=== PATIENT | female | born 1950 | race Caucasian/White ===

== ENCOUNTER 2016-09-18 06:33 | Inpatient (IN) | payer OTHER ==
--- NOTE | 2016-09-03 15:44 | NUR ---
PMH, allergies, meds reviewed and documented. Dose of Carvedilol confirmed with [facility]. Preop and DOS instructions given including handouts of shower instructions with CHG, medications to stop before surgery, ortho consent, Surgical Services pamphlet, Guidebook, and my contact information.
--- NOTE | 2016-09-16 14:00 | NUR ---
JOINT REPLACEMENT PREOP CLASS PATIENT ATTENDED JOINT REPLACEMENT PREOP CLASS. CASE MANAGEMENT CONTACT INFORMATION PROVIDED. EDUCATION WAS PROVIDED REGARDING WHAT TO EXPECT BEFORE, DURING AND AFTER SURGERY. INCLUDING: OVERVIEW OF ANATOMY AND PHYSIOLOGY HOSPITAL TREATMENT SCHEDULE THERAPY DEMONSTRATION CASE MANAGEMENT RESPONSIBILITIES DISCHARGE PLANNING EQUIPMENT NEEDS JOINT REPLACEMENT WORKBOOK ANTI-COAGULATION SURGERY STRONG NUTRITIONAL PROTOCOL DISCHARGE INSTRUCTIONS [facility] PATIENT PORTAL, WITH INSTRUCTIONS CJR AND PREOP SURVERY PREOP BATHING- CHG GIVEN ALL PATIENT'S QUESTIONS ANSWERED TO THEIR SATISFACTION. PATIENTS AND COACHES ENCOURAGED TO CALL WITH ANY ADDITIONAL QUESTIONS OR CONCERNS. CM FOLLOWING FOR TRANSITIONAL CARE PLANNING NEEDS DURING HOSPITALIZATION.
[2016-09-18] VITALS (26 sets, daily range): BP systolic 121–160; BP diastolic 56–104; PULSE 36–68; RESP 11–36; TEMP 97.3–97.6; O2SAT 86–100; Ht 171.4 cm; Wt 73.9 kg
[~2016-09-18] VITALS: Ht 171.4 cm; Wt 73.9 kg
[~2016-09-18 06:33] MED LIST: BIOT10004 PO; CARV6.252 PO; CEFAZOLIN 2 GM VIAL IV ONE; CHOL100055 PO; CRAN400C; FAMOTIDINE 20mg IVPB 50 ML IV ONE; FISH1CAP29 PO; GLUC1CAP25 PO; LIDOCAINE 1% (10mg/ml) 2ml SDV ID ONE; MELOXICAM 15 MG TABLET PO ONE; METOCLOPRAMIDE 10mg/2ml INJECTION IV ONE; MULT1CAP47 PO; NAPR220C11 PO; TURM500C8
--- OUTSIDE RECORDS SUMMARY | 2016-09-18 06:37 | XMS REPORT | Continuity of Care Document ---
Author Author [facility] Organization [facility] Address Unknown Phone Unavailable Allergies Medications Problems Procedures Results Encounters ACCT No. Visit Date/Time Discharge Status Pt. Type Provider Facility Loc./Unit Complaint [id number] 07/16/2015 09:45:00 [facility] Mary Soni
[2016-09-18] MEDS ORDERED: ONDANSETRON 4mg/2ml INJECTION IV ONE (07:00)
[2016-09-18] MEDS ORDERED: NOZIN NASAL SWAB NS ONE ×2 (07:00→11:15)
[2016-09-18] MEDS ORDERED: ACETAMINOPHEN 500 MG TABLET PO ONE (07:00)
[2016-09-18] MEDS ORDERED: LR 1,000 ML IV PRN (07:00)
[2016-09-18] MEDS ORDERED: CRAN500C3 PO (07:22)
[2016-09-18] MEDS ORDERED: TURM500C8 PO (07:23)
[2016-09-18] MEDS ORDERED: ACET-3088 PO (07:25)
[2016-09-18 07:26] LABS: ANION GAP 11 MEQ/L (5-15); BUN/CREATININE RATIO 24 RATIO (6-26); CALCIUM 10.1 MG/DL (8.4-10.2); CHLORIDE 105 MEQ/L (98-107); CO2 - CARBON DIOXIDE 29 MEQ/L (22-30); CREATININE 0.7 MG/DL (0.7-1.2); GLOMERULAR FILTRATION RATE 85; GLUCOSE 91 MG/DL (65-110); POTASSIUM 4.1 MEQ/L (3.6-5); SODIUM 145 MEQ/L (134-144)
[2016-09-18] MEDS ORDERED: ACET-2930 PO (07:26)
[2016-09-18] MEDS ORDERED: VANCOMYCIN 1 GRAM INJECTION ONE (08:31)
[2016-09-18] MEDS ORDERED: PROPOFOL 500mg 50 ML IV ONE (08:50)
[2016-09-18] MEDS ORDERED: MIDAZOLAM 2mg/2ml INJECTION ONE (09:23)
[2016-09-18] MEDS ORDERED: ROPIVACAINE 0.5% (5mg/ml) 30ml INJ ONE (09:45)
[2016-09-18] MEDS ORDERED: TRANEXAMIC ACID 1,000 MG in NORMAL SALINE 100 ML IV ONE ×2 (10:00→11:00)
--- NOTE | 2016-09-18 10:35 | NUR ---
CM CM ATTEMPTED VISIT. PT IS AT PROCEDURE. NO FAMILY PRESENT. CM CONTACT INFORMATION IS LEFT AT THE BEDSIDE.
[2016-09-18] MEDS ORDERED: EPINEPHRINE 0.25 MG, BUPIVACAINE 0.25% 75 MG, MORPHINE SULFATE 15 MG, KETOROLAC 60 MG i... INJ ONE ×5 (11:00)
--- NOTE | 2016-09-18 11:04 | PDOPERATE ---
Operative Report Date of Operation 09/18/16 Side: Left Preoperative Diagnosis: knee primary DJD Postoperative Diagnosis Same as preoperative diagnosis. Operation/Procedure: total knee arthroplasty (left) Surgeon Emily Conroy MD Field Irrigation Worker CHRIS Singh Complications None. Regional Block: Spinal Estimated Blood Loss See Anesthesia Record. Fluids Please See Anesthesia Record. Description of Operation Ms. Sood and her left knee were identified and marked in the the preoperative holding area. She was then brought back to the operating suite and proper anesthesia was administered. She was then positioned supine on the operating table. The left lower extremity was then prepped and draped in my normal sterile fashion. Timeout was performed with all operating room personnel. The leg was exsanguinated and tourniquet inflated 250 mmHg. A standard anterior incision followed by a medial parapatellar approach was utilized. She had severe disease in the lateral compartment and significant disease in the medial femoral condyle. A distal femoral cut was made in 5 of valgus using intramedullary guide. The femur was sized at a 4 and rotation set using the epicondylar axis. Distal femoral cuts were performed. A proximal tibial cut was made using extramedullary guide. Remaining osteophytes and meniscus were removed. Gaps were checked and they were well balanced and rectangular. Trial components were placed with a 9 mm spacer she was tight so another 2 mm were taken off the tibial cut. This allowed for full range of motion and the patella tracked well. The knee was stable throughout range of motion. The patella was resurfaced with the knee in extension to a size 32. The tibia rotation was then marked and the tibia stamped at the proper rotation at a size 4. The bone was prepared for cementing and all components cemented into place and allowed to cure in extension. Betadine solution was used for 3 minutes during the curing period and then fully irrigated out with 1 L of normal saline. The tourniquet was deflated and hemostasis obtained with electrocautery. After the cement had cured the knee was taken through range of motion check for balance and stability which were good. Vancomycin powder was placed into the wound. The arthrotomy was closed with #1 Vicryl. The remainder of the wound was then closed by my educational/development assistant utilizing 2-0 vycral in the subcutaneous tissue. 4-0 monocryl was used in the subcuticular layer followed by dermabond and a sterile dressing. After closure the patient will be transferred to the recovery room under the care of anesthesia. BIJU CONROY MD September 18, 2016 11:03
[2016-09-18] MEDS ORDERED: INSULIN ASPART 100 UNIT/ML SQ PRN (11:15)
[2016-09-18] MEDS ORDERED: LORAZEPAM 1 MG TABLET PO PRN (11:15)
[2016-09-18] MEDS ORDERED: SENNOSIDES 8.6 MG TABLET PO PRN (11:15)
[2016-09-18] MEDS ORDERED: DiphenhydrAMINE 50 MG/ML INJECTION IV PRN (11:15)
[2016-09-18] MEDS ORDERED: PRN ORDERS MC (11:15)
[2016-09-18] MEDS ORDERED: NAPROXEN 220 MG TABLET PO PRN (11:15)
[2016-09-18] MEDS ORDERED: DiphenhydrAMINE 25 MG CAPSULE PO PRN (11:15)
[2016-09-18] MEDS ORDERED: ONDANSETRON 4mg/2ml INJECTION IV PRN (11:15)
[2016-09-18] MEDS ORDERED: POLY17PO6 PO (11:42)
[2016-09-18] MEDS ORDERED: TRAM50TA53 PO (11:42)
[2016-09-18] MEDS ORDERED: ASPI-917 PO (11:43)
--- NOTE | 2016-09-18 11:45 | ANESPD ---
Peripheral Nerve Blockade Physician: Chan Conroy MD Date: 09/18/16 Surgical Procedure: Left Adductor Canal Nerve block Discussion Discussed risks/options/alternatives of anesthesia and questions answered. Patient consents. Nursing pain assessment noted. Block Start: 11:30 Block Stop: 11:40 Block Employed: Adductor Canal Indication: post-operative pain Position: supine Patient: Consent, risks/benefits discussed, Informed, post block act. discussed Monitors: EKG, SpO2, NIBP Initial Vital Signs First Documented Vital Signs Date Time Temp Pulse Resp B/P Pulse Ox O2 Delivery O2 Flow Rate FiO2 09/18/16 06:59 97.6 49 14 131/76 97 Room Air Post Vital Signs Vital Signs Date Time Temp Pulse Resp B/P Pulse Ox O2 Delivery O2 Flow Rate FiO2 09/18/16 06:59 97.6 49 14 131/76 97 Room Air Initial Pain Score: 0 Post Block Score: 0 Prep: chlorhexadine/ETOH Ultrasound Used?: Yes Injectate Ropivacaine (%): 0.5 Ropivacaine (mL): 20 Was Epi 1:200,000 Used?: No Injection Injection made incrementally with constant monitoring and aspiration every [3] ml. VJ DAN September 18, 2016 11:45
[2016-09-18] MEDS: NORMAL SALINE 1,000 ML IV SCH (12:16)
--- NOTE | 2016-09-18 12:24 | ANESPO ---
Post-Op Note Date 09/18/16 Status Pt Participated in Evaluation: Pt participated in person Vital Signs Date Time Temp Pulse Resp B/P Pulse Ox O2 Delivery O2 Flow Rate FiO2 09/18/16 12:15 97.6 55 25 153/82 89 Room Air 09/18/16 11:45 2.00 Respiratory Function: Airway patent Cardiovascular Function: Irregular pulse (PACs as per patient basline. HR in low 50s ) Mental Status: Alert/oriented Pain Level Intensity: 4 Unable to Assess Pain Due To: INTRA OP Hydration: IV infusing Complications during Recovery None apparent Follow-Up Instructions Instructions Per Surgeon VJ DAN September 18, 2016 12:24
--- NOTE | 2016-09-18 12:30 | NUR ---
ARRIVAL PT TO ROOM 113 PER CART. PT TRANSFERRED SELF FROM CART TO BED. INCONT VOID AT THIS TIME. DENIES PAIN. ABLE TO MOVE LEGS. DENIES NAUSEA OR SOA. PT ON RA. BRADYCARDIC AT THIS TIME. DENIES S/S OF BRADYCARDIA. STRONG PEDAL PULSES. MEPILEX C/D/I. PT RESTING IN BED WITH ALARM. CALL LIGHT WITHIN REACH. WILL CONTINUE TO MONITOR.
--- NOTE | 2016-09-18 13:40 | DI ---
Indication: ITS.REASON: POSTOP left knee replacement PROCEDURE: KNEE LEFT 2 VIEW: Encounter: Initial Comparison: Left knee MRI dated November 27, 2014 Findings: Postoperative changes of left total knee replacement are seen. There is expected postoperative subcutaneous gas. No evidence of hardware failure or acute fracture. No retained radiopaque surgical instruments or sponges. Overlying material causing artifact. Impression: New left total knee prosthesis without evidence of immediate complication. .
[2016-09-18] MEDS: NOZIN NASAL SWAB NS SCH ×2 (14:00→21:27)
[2016-09-18] MEDS: ACETAMINOPHEN 325 MG TABLET PO SCH ×3 (14:02→21:29)
--- NOTE | 2016-09-18 14:51 | CONSPD ---
Consultation Info Date DATE: 09/18/16 TIME: 14:41 Attending Physician: Marycarmen Reason for Consultation: Bradycardia HPI - Adult Date DATE: 09/18/16 TIME: 14:41 General Chief Complaint: Bradycardia History of Present Illness This is a 65 year old female admitted to the orthopedic surgery service after having a total knee replacement. We have been consulted because of post operative bradycardia. Pateint states that she takes Coreg at home. She is currently up walking physical therapy and asymptomatic. at bedside relates that she snores at night on a very rare occasion and he has not ever noticed her waking up with a chocking sensation. Past Medical History Past Medical History Hypertension Osteoarthritis Surgical History Patient's Surgical History: Knee replacement Current Medications Home Meds Active Scripts Aspirin *EC* (Aspirin EC) 325 Mg Tablet., 325 MG PO BID, #84 TAB This medication is for blood clot prevention and should be taken twice a day for 6 weeks. Prov:VENKATA EDWARDS 09/18/16 Polyethylene Glycol 3350 (Miralax) 17 Gm Powd.pack, 17 G PO DAILY Y for CONSTIPATION, #1 BOTTLE Take 17 Grams (1 capful), by mouth, once a day. Prov:VENKATA EDWARDS 09/18/16 Tramadol HCl (Ultram) 50 Mg Tablet, 50-100 MG PO Q6H Y for PAIN, #60 TAB Prov:VENKATA EDWARDS 09/18/16 Reported Medications Acetaminophen/Diphenhydramine (Tylenol Pm Ex-Strength Caplet) 1 Each Tablet, 2 TAB PO HS 09/18/16 Acetaminophen (Tylenol Arthritis) 650 Mg Tablet.er, 2 TAB PO BID 09/18/16 Turmeric Root Extract (Turmeric) 500 Mg Capsule, 1 CAP PO DAILY 09/18/16 Cranberry Extract (Cranberry) 500 Mg Capsule, 1 CAP PO DAILY 09/18/16 Carvedilol (Carvedilol) 6.25 Mg Tablet, 1 TAB PO BIDWM, TAB BEST WITH FOOD. 09/03/16 Cholecalciferol (Vitamin D3) (Vitamin D) 1,000 Unit Capsule, 1 CAP PO BID 09/03/16 Naproxen Sodium (Aleve) 220 Mg Capsule, 2 CAP PO BID Y for PAIN, CAP 09/03/16 Glucosa Ch 2Kcl/Chondroitin Hc (Glucosamine & Chondroitin Cap) 1 Each Capsule, 1 CAP PO BID 09/03/16 Biotin (Biotin) 1,000 Mcg Tab.chew, 1 TAB PO BID 09/03/16 Multivitamins W-Minerals (Multivitamin) 1 Cap Capsule, 1 CAP PO DAILY 01/09/09 Fish Oil/Widener-3 Fatty Acids (Fish Oil 1,000 Mg Capsule) 1 Cap Capsule, 1 CAP PO TID 01/09/09 Allergies: Coded Allergies: LUIS Inhibitors (Unverified Allergy, Unknown, 09/18/16) PER H&P Family History Family History: Hypertension Social History Smoking Status: Never smoker Does patient use chewing tobac: No Second Hand Exposure: No Alcohol Intake: none Sexuality: male partner Advance Directives: Yes DPOA for Healthcare Only Review of Systems All Other Systems Comments As per HPI. All systems were reviewed and otherwise negative. Physical Exam General Vital Signs Vital Signs Date Time Temp Pulse Resp B/P Pulse Ox O2 Delivery O2 Flow Rate FiO2 09/18/16 12:19 97.6 09/18/16 12:15 55 25 153/82 89 Room Air 09/18/16 11:45 2.00 Height (Feet): 5 Height (Inches): 7.50 Comments General - AAOx3; NAD HEENT - FELICITA; EOMI Neck - supple, no jvd, no bruit CV - bradycardic without m/r/g Lungs - CTAB Abd - benign Ext - no e/c/c Neuro - nonfocal Rectal - deferred - deferred Skin - warm, dry, intact w/o rashes Neurologic RN Documented GCS Eye Opening: Verbal: Motor: Total: Laboratory Laboratory Tests Test 09/18/16 07:09 09/18/16 11:53 Turbidity < 20 Sodium Level 145MEQ/L Potassium Level 4.1MEQ/L Chloride Level 105MEQ/L Carbon Dioxide Level 29MEQ/L Anion Gap 11MEQ/L Blood Urea Nitrogen 17.0MG/DL Creatinine 0.7MG/DL Glomerular Filtration Rate Calc 85 BUN/Creatinine Ratio 24RATIO Glucose Level 91MG/DL Calculated Osmolality 281MOSM/KG Calcium Level 10.1MG/DL Icterus Index < 2 Chemistry Specimen Hemolysis 18 Glucometer 71mg/dL Impression/Recommendation Impression #1 Bradycardia - likely medication induced #2 HTN #3 OA Recommendation #1 Hold Coreg. LINDSAY SWIFT MD September 18, 2016 14:45
[2016-09-18] MEDS: CEFAZOLIN 2 G in NORMAL SALINE 100 ML IV SCH (16:46)
[2016-09-18] MEDS: CARVEDILOL 6.25 MG TABLET PO SCH (16:46)
--- NOTE | 2016-09-18 20:14 | NUR ---
STATUS PT A/O X3. UP WITH ASSIST OF ONE WITH WALKER AND GAIT BELT. PT COMPLAINS OF PAIN IN LEFT KNEE. SCHEDULED TYLENOL GIVEN. DENIES SOA OR NAUSEA. PT ON RA. BRADYCARDIA. HELD EVENING COREG DUE TO HEART RATE. VERBAL ORDERS PER DR MOORE. TOLERATING CONS CARB DIET. BS STABLE. VOIDING WELL. PT RESTING IN BED WITH ALARM. CALL LIGHT WITHIN REACH. WILL CONTINUE TO MONITOR.
[2016-09-18] MEDS: ASPIRIN *EC* 325mg TABLET PO SCH (21:28)
[2016-09-18] MEDS ORDERED: SENNOSIDES 8.6 MG TABLET PO SCH (22:00)
[2016-09-18] MEDS: TRAMADOL 50 MG TABLET PO PRN (23:58)
[2016-09-19 01:03] VITALS: BP 116/69; PULSE 56; RESP 16; TEMP 97.5; O2SAT 97
[2016-09-19] MEDS: TRAMADOL 50 MG TABLET PO PRN ×2 (01:04→08:30)
[2016-09-19] MEDS: CEFAZOLIN 2 G in NORMAL SALINE 100 ML IV SCH (01:05)
[2016-09-19] MEDS: NORMAL SALINE 1,000 ML IV SCH (01:06)
--- NOTE | 2016-09-19 02:58 | NUR ---
SHIFT REPORT PT A/O X3. VITAL SIGNS STABLE ON ROOM AIR. UP WITH ASSIST OF ONE WITH WALKER AND GAIT BELT. REPORTS PAIN IN LEFT KNEE. SCHEDULED TYLENOL AND PRN MIKE GIVEN. DENIES SOA OR NAUSEA. TOLERATING CONS CARB DIET. VOIDING WELL. PT RESTING IN BED WITH ALARM. CALL LIGHT WITHIN REACH. WILL CONTINUE TO MONITOR.
[2016-09-19 05:20] LABS: HCT - HEMATOCRIT 35.4 % (36-46); HGB - HEMOGLOBIN 11.6 GM/DL (12-16); MEAN CORPUSCULAR HGB 31.2 UUG (26-34); MEAN CORPUSCULAR HGB CONC(MCHC 32.8 GM/DL (31-37); MEAN CORPUSCULAR VOLUME 95.2 UM3 (80-100); MEAN PLATELET VOLUME 11.4 UM3 (9.4-12.4); RED BLOOD COUNT 3.72 M/MM3 (4.00-5.20); WBC - WHITE BLOOD COUNT 5.7 T/MM3 (4.5-11.0)
[2016-09-19 05:24] LABS: ANION GAP 9 MEQ/L (5-15); BUN/CREATININE RATIO 19 RATIO (6-26); CALCIUM 9.2 MG/DL (8.4-10.2); CHLORIDE 103 MEQ/L (98-107); CO2 - CARBON DIOXIDE 29 MEQ/L (22-30); CREATININE 0.8 MG/DL (0.7-1.2); GLOMERULAR FILTRATION RATE 72; GLUCOSE 106 MG/DL (65-110); POTASSIUM 4.2 MEQ/L (3.6-5); SODIUM 141 MEQ/L (134-144)
[2016-09-19] MEDS: NOZIN NASAL SWAB NS SCH ×2 (06:32→13:18)
[2016-09-19 08:04] VITALS: BP 135/70; PULSE 69; RESP 18; TEMP 96.9; O2SAT 97
[2016-09-19] MEDS: CARVEDILOL 6.25 MG TABLET PO SCH (08:30)
[2016-09-19] MEDS: ASPIRIN *EC* 325mg TABLET PO SCH (08:30)
[2016-09-19] MEDS: ACETAMINOPHEN 325 MG TABLET PO SCH ×2 (08:31→13:19)
[2016-09-19] MEDS ORDERED: POLYETHYL.GLYCOL 3350 PACKET 17gm PO SCH (09:00)
[2016-09-19] MEDS ORDERED: DOCUSATE SODIUM 100 MG CAPSULE PO SCH (09:00)
--- NOTE | 2016-09-19 09:05 | NUR ---
CM CM IN TO VISIT WITH PT. SHE IS ALERT AND ORIENTED. SHE PLANS TO RETURN HOME. SHE WILL DO OUTPT PT AT [facility]. SHE HAS FWW AND NONAE. SHE IS GIVEN CM CONTACT INFORMATION. Addendum: 09/19/16 at 0906 by ES STORY RN Amended: Links added.
--- NOTE | 2016-09-19 09:40 | PDORTHOPN ---
Subjective Date DATE: 09/19/16 TIME: 09:38 Subjective Doing well but pain increased today after being up. No other complaints. Objective Vital Signs Vital signs Vital Signs 09/19/16 09/19/16 01:03 08:04 Temp 97.5 96.9 Pulse 56 69 Resp 16 18 B/P 116/69 135/70 Pulse Ox 97 97 O2 Delivery Room Air Room Air Height (Feet): 5 Height (Inches): 7.50 Weight (Kilograms): 73.900 General General Appearance: Well Nourished, Well Developed, No Acute Distress Respiratory (Brief) Respiratory Brief: FOUND: non-labored Cardiovascular (Brief) Cardiac: FOUND: calf easily compressible, calf soft, nontender Surgical Site Incision: FOUND: Mepilex dressing intact, no drainage Integumentary (Brief) Integumentary Brief: FOUND dry, FOUND pink, FOUND warm Neurologic (Brief) Neurological Brief: FOUND: neuro intact Psychiatric (Brief) Psychiatric Brief: FOUND: alert Laboratory Laboratory Laboratory Tests 09/19/16 04:02 Laboratory Tests 09/18/16 07:09 09/19/16 04:02 Assessment & Plan Problems: (1) Degenerative arthritis of left knee Status: Acute Qualifiers: Osteoarthritis type: primary Qualified Codes: M17.12 - Unilateral primary osteoarthritis, left knee Assessment & Plan: Continue PT/OT. ASA for DVT proph. Will change pain med from tramadol to roxicodone. Plan on D/C later today pending PT. Hospital Course Summary Disclaimer The visit summary below is not to be considered part of the above Progress Note. BIJU VERDUGO MD September 19, 2016 09:40
[2016-09-19] MEDS: OXYCODONE I.R. 5 MG TABLET PO PRN ×2 (10:38→11:44)
[2016-09-19 11:44] VITALS: BP 143/88; PULSE 65; RESP 18; TEMP 97.9; O2SAT 97
[2016-09-19] MEDS ORDERED: OXYC5CAP3 PO (12:08)
--- NOTE | 2016-09-19 15:10 | NUR ---
DISCHARGE PT A&OX3. REVIEWED DISCHARGE INSTRUCTIONS WITH PT AND , ANSWERING ALL QUESTIONS. PROVIDED PRESCRIPTIONS FOR OXYCODONE, ASPIRIN AND MIRALAX, REVIEWING INSTRUCTIONS/DOSAGES. SENT PT BELONGINGS, THEIR WALKER, AND POLAR PACK. PT ACKNOWLEDGES SHE WILL PICK-UP PRESCRIPTIONS IN [facility]. PT AGREES TO FOLLOW-UP APPTS WITH DR. VERDUGO AND PHYSICAL THERAPY. FRIDA SUGGS, PROVIDED HANDICAP FORM TO PT FOR THEIR COMPLETION AND FOLLOW-UP WITH PHYSICIAN FOR SIGNATURE. PT TRANSPORTED BY WHEELCHAIR TO FRONT ENTRANCE TO FAMILY CAR, TOLERATING WELL.
[2016-09-20] MEDS ORDERED: MILK OF MAGNESIA 30 ML SUSP PO SCH (08:00)
[2016-09-20] MEDS ORDERED: BISACODYL 10 MG SUPPOSITORY RECTALLY SCH (20:00)
== END 2016-09-19 15:21 | disposition home or self-care (01) | DRG 470 ==
LOC: SRG 06:33
PROVIDERS: ADMIT Orthopaedic Surgery; ATTEND Orthopaedic Surgery
PROC: 0SRD0J9 Replacement of Left Knee Joint with Synthetic Substitute, Cemented, Open Approach (ICD-10-PCS; principal; 2016-09-18 09:46)
DX: M17.12 Unilateral primary osteoarthritis, left knee (principal); Z96.651 Presence of right artificial knee joint; I49.1 Atrial premature depolarization; Z79.899 Other long term (current) drug therapy; I10 Essential (primary) hypertension; Z79.82 Long term (current) use of aspirin; E78.00 Pure hypercholesterolemia, unspecified; F41.9 Anxiety disorder, unspecified; R73.03 Prediabetes
CPT/HCPCS: 36415; 80048; 82948; 85027; 93005